=== PATIENT | female | born 1950 | race African-American/Black ===

== ENCOUNTER 2020-05-09 11:50 | Emergency (ER) | payer OTHER ==
[~2020-05-09] VITALS: Ht 162.6 cm; Wt 68.0 kg
[2020-05-09 14:44] LABS: BASOPHILS % 0.5 % (0.0-2.0); EOSINOPHILS % 0.6 % (0.0-5.0); HEMOGLOBIN. 12.7 g/dL (12.0-16.0); LYMPHOCYTES % 9.2 % (20.0-50.0); MEAN CORPUSCULAR HEMOGLOBIN 29.5 pg (28.0-32.0); MEAN PLATELET VOLUME 6.8 fl (7.4-10.4); MONOCYTES % 4.5 % (2.0-8.0); NEUTROPHILS % 85.2 % (40.0-76.0); PLATELET 304 x1000/uL (130-400); RED BLOOD CELL COUNT 4.32 mill/uL (4.2-5.4); RED CELL DISTRIBUTION WIDTH 15.7 % (11.6-14.6)
[2020-05-09 14:49] LABS: CHLORIDE 97 mEq/L (98-107)
[2020-05-09 19:12] VITALS: BP 146/65
== END 2020-05-09 19:25 | disposition short-term general hospital (02) ==
LOC: ER 11:56 → CANBEDREQ 19:50
DX: R42 Dizziness and giddiness (principal); E11.22 Type 2 diabetes mellitus with diabetic chronic kidney disease; I12.0 Hypertensive chronic kidney disease with stage 5 chronic kidney disease or end stage renal disease; N18.5 Chronic kidney disease, stage 5; Z88.6 Allergy status to analgesic agent; Z88.8 Allergy status to other drugs, medicaments and biological substances; Z79.899 Other long term (current) drug therapy
CPT/HCPCS: 36415; 71045; 80053; 81025; 83880; 84484; 85025; 93005; 99285

== ENCOUNTER 2023-11-24 19:45 | Emergency (ER) | payer OTHER ==
[~2023-11-24] VITALS: Ht 167.6 cm; Wt 68.0 kg
[2023-11-24 19:48] VITALS: O2SAT 98
[2023-11-24] MEDS ORDERED: MORPHINE SULFATE 4 MG/ML CPJ (NOT FOR IM USE) IV ONE (21:00)
[2023-11-24] MEDS ORDERED: MORPHINE SULFATE 4 MG/ML CPJ (NOT FOR IM USE) IV NR (22:45)
[2023-11-24 22:52] LABS: BASOPHILS % 0.6 % (0.0-2.0); EOSINOPHILS % 5.6 % (0.0-5.0); HEMATOCRIT. 34.5 % (36.0-48.0); HEMOGLOBIN. 11.4 g/dL (12.0-16.0); LYMPHOCYTES % 16.8 % (20.0-50.0); MEAN CORPUSCULAR HEMOGLOBIN 30.6 pg (28.0-32.0); MEAN CORPUSCULAR HGB CONC 32.9 g/dL (31.0-37.0); MEAN CORPUSCULAR VOLUME 93.1 fL (81.0-99.0); MEAN PLATELET VOLUME 7.1 fl (7.4-10.4); MONOCYTES % 8.3 % (2.0-8.0); NEUTROPHILS % 68.7 % (40.0-76.0); PLATELET 382 x1000/uL (130-400); RED BLOOD CELL COUNT 3.71 mill/uL (4.2-5.4)
[2023-11-24 23:09] LABS: ALANINE AMINOTRANSFERASE 9 IU/L (10-49); ALBUMIN 3.8 g/dL (3.2-4.8); ASPARTATE AMINOTRANSFERASE 20 IU/L (<34); BILIRUBIN TOTAL < 0.2 mg/dL (0.1-1.0); CARBON DIOXIDE 29 mEq/L (21-32); CHLORIDE 96 mEq/L (98-107); GLUCOSE 103 mg/dL (70-105); POTASSIUM 6.1 mEq/L (3.5-5.1); PROTEIN TOTAL 7.1 g/dL (6.0-8.3); SODIUM 135 mEq/L (136-145); TROPONIN I HIGH SENSITIVITY 15 ng/L (3.0-34); UREA NITROGEN BLOOD 47 mg/dL (9-23)
[2023-11-24 23:19] LABS: CREATININE 7.5 mg/dL (0.6-1.0)
[2023-11-25] MEDS ORDERED: MORPHINE SULFATE 4 MG/ML CPJ (NOT FOR IM USE) IV ONE
[2023-11-25] MEDS ORDERED: DEXTROSE 50% WATER 50ML SYRINGE IV ONE
[2023-11-25] MEDS ORDERED: BLOOD SUGAR DIAGNOSTIC STRIP TEST ONE
[2023-11-25] MEDS ORDERED: INSULIN REGULAR (HUMULIN R) 300UNITS/3ML VIAL IV ONE
[2023-11-25] MEDS ORDERED: CALCIUM GLUCONATE 100MG/ML 10ML VIAL IV ONE (02:15)
[2023-11-25] MEDS ORDERED: SODIUM POLYSTYRENE SULFONATE 15 G/60 ML BOT PO ONE (02:15)
[2023-11-25] MEDS ORDERED: IOHEXOL-300 100 ML BOTTLE ONE (03:04)
[2023-11-25 03:05] LABS: CALCIUM 7.5 mg/dL (8.7-10.4); POTASSIUM 5.5 mEq/L (3.5-5.1)
[2023-11-25 04:10] LABS: CREATININE 7.8 mg/dL (0.6-1.0)
[2023-11-25 05:27] VITALS: BP 110/50; PULSE 67; RESP 12; TEMP 97.9
== END 2023-11-25 06:37 | disposition short-term general hospital (02) ==
LOC: ER 19:45
DX: M25.551 Pain in right hip (principal); M25.552 Pain in left hip; I12.0 Hypertensive chronic kidney disease with stage 5 chronic kidney disease or end stage renal disease; E11.22 Type 2 diabetes mellitus with diabetic chronic kidney disease; N18.6 End stage renal disease; Z99.2 Dependence on renal dialysis; E87.5 Hyperkalemia; I95.9 Hypotension, unspecified; W19.XXXA Unspecified fall, initial encounter; Y93.89 Activity, other specified; Y92.89 Other specified places as the place of occurrence of the external cause; Y99.8 Other external cause status
CPT/HCPCS: 80053; 85025; 84484; 36415 ×2; 73522; 71045; 93005; 96374; 99285; 80048; 82962; 74177; 96375; 96376; J2270 ×2; Q9967; J0610; J1815